=== PATIENT | female | born 1965 | race Caucasian/White ===

== ENCOUNTER → 2023-10-22 09:09 | Outpatient (REF) | payer OTHER, SELFPAY | LOC: HWWDC 09:09 | PROVIDERS: ATTENDING PHYSICIAN Obstetrics & Gynecology Gynecology; FAMILY PHYSICIAN Family Medicine | DX: Z12.31 Encounter for screening mammogram for malignant neoplasm of breast (principal) | CPT/HCPCS: 77063; 77067 ==

== ENCOUNTER → 2025-04-17 13:55 | Outpatient (REF) | payer OTHER, SELFPAY | LOC: WDC 13:55 | PROVIDERS: ATTENDING PHYSICIAN Obstetrics & Gynecology Gynecology; FAMILY PHYSICIAN Family Medicine | DX: Z12.31 Encounter for screening mammogram for malignant neoplasm of breast (principal) | CPT/HCPCS: 77063; 77067 ==